=== PATIENT | female | born 1945 | race Caucasian/White ===

== ENCOUNTER 2022-10-18 07:50 | Inpatient (IN) ==
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
[2022-10-18 08:37] LABS: Basophils # (auto) 0.02 K/uL (0-0.2); Basophils % (auto) 0.3 %; Eosinophils # (auto) 0.05 K/uL (0-0.50); Eosinophils % (auto) 0.7 %; Hematocrit (blood only) 39.9 % (37.0-47.0); Hemoglobin 13.4 g/dl (12.0-16.0); Immature Granulocytes # (auto) 0.03 K/uL (0.01-0.20); Immature Granulocytes % (auto) 0.4 %; Lymphocytes # (auto) 1.16 K/uL (1.2-3.4); Lymphocytes % (auto) 15.8 %; Mean Corpuscular Hemoglobin 31.1 pg (25.0-34.0); Mean Corpuscular Hgb Conc 33.6 g/dL (32.0-36.0); Mean Corpuscular Volume 92.6 fL (80.0-100.0); Mean Platelet Volume 9.7 fL (9.4-12.4); Monocytes # (auto) 0.76 K/uL (0.11-0.59); Monocytes % (auto) 10.3 %; Neutrophils # (auto) 5.33 K/uL (1.40-6.50); Neutrophils % (auto) 72.5 %; Platelet Count 175 K/uL (130-400); RDW Coefficient of Variation 16.3 % (11.5-14.5); RDW Standard Deviation 55.8 fL (36.4-46.3); Red Blood Count 4.31 M/uL (4.20-5.40); White Blood Count 7.35 K/ul (4.8-10.8)
[2022-10-18] MEDS ORDERED: OPTIRAY 320 100ml IV ONE (08:42)
[2022-10-18 08:53] LABS: Albumin Globulin Ratio 1.4 (0.9-2); BUN Creatinine Ratio 23.8 (10-20); Bilirubin,Total 0.4 mg/dl (0.2-1.0); Calcium 9.1 mg/dl (8.6-10.3); Est GFR (African American) 101.7 ml/min; Est GFR (Non-African American) 87.7 ml/min; Globulin 2.9 gm/dl (2.5-4.0); Potassium 4.3 mmol/L (3.5-5.1); Total Protein 6.9 gm/dl (6.0-8.3)
[2022-10-18 09:00] LABS: Troponin I High Sensitivity 5.4 pg/ml (0-14)
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
[2022-10-18 09:17] LABS: iSTAT Creatinine 0.6 mg/dl (0.6-1.3); iSTAT Hemoglobin 14.6 g/dl (12.0-16.0); iSTAT Ionized Calcium 1.15 mmol/l (1.12-1.32); iSTAT Potassium 4.3 mmol/L (3.3-5.0)
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
[2022-10-18 09:30] LABS: Appearance Urine Clear (Clear); Bilirubin Urine Negative (Negative); Blood Urine Negative (Negative); Color Urine Yellow; Glucose Urine UA Negative (Negative); Ketones Urine Negative (Negative); Leukocyte Esterase Urine Negative (Negative); Nitrite Urine Negative (Negative); Protein Urine Negative (Negative); Specific Gravity Urine 1.009 (1.000-1.030); Urobilinogen Urine Negative (Negative); pH Urine 7.5 (4.5-7.5)
[2022-10-18] MEDS ORDERED: MoRPHine SULFATE 4 MG/ML 1 ML CARP\\VIAL IV STA (09:42)
[2022-10-18] MEDS ORDERED: ONDANSETRON INJ 2 MG/ML 2 ML VIAL IV STA (09:42)
[2022-10-18] MEDS ORDERED: ACETAMINOPHEN 325 MG TAB PO PRN (10:52)
[2022-10-18] MEDS ORDERED: POLYETHYLENE (MIRALAX) 17 GM PACK PO PRN (10:52)
[2022-10-18] MEDS ORDERED: ALUMINUM/MAGNESIUM SUSP 30 ML UDC PO PRN (10:52)
[2022-10-18] MEDS ORDERED: MAGNESIUM HYDROXIDE SUSP 30 ML UDC PO PRN (10:52)
[2022-10-18] MEDS ORDERED: ONDANSETRON INJ 2 MG/ML 2 ML VIAL IV PRN (10:52)
[2022-10-18] MEDS ORDERED: MoRPHine SULFATE 4 MG/ML 1 ML CARP\\VIAL IV PRN (10:58)
[2022-10-18] MEDS ORDERED: ENOXAPARIN INJ 40 MG/0.4 ML SYR SQ ONE (11:00)
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
[2022-10-18] MEDS ORDERED: FLUTICASONE PROPIONATE NA SPR 16 GM BTL PRN (12:00)
[2022-10-18] MEDS: ATENOLOL 50 MG TABLET PO SCH ×3 (13:40→20:07)
[2022-10-18] MEDS: oxyCODONE/ACETAMINOPHEN 10-325 TAB PO PRN ×2 (14:03→20:07)
--- NOTE | 2022-10-18 17:56 | Electrocardiogram Report ---
Test Reason : Blood Pressure : / mmHG Vent. Rate : 069 BPM Atrial Rate : 069 BPM P-R Int : 152 ms QRS Dur : 076 ms QT Int : 418 ms P-R-T Axes : 056 028 033 degrees QTc Int : 447 ms Normal sinus rhythm Normal ECG No previous ECGs available Confirmed by Sharan Magdaleno ([id number]) on 10/18/2022 5:56:02 PM Referred By: Confirmed By:Niels Magdaleno
[2022-10-18] MEDS: ENOXAPARIN INJ 40 MG/0.4 ML SYR SQ SCH (22:23)
[2022-10-19] MEDS: oxyCODONE/ACETAMINOPHEN 10-325 TAB PO PRN ×3 (06:34→16:16)
[2022-10-19 07:37] LABS: Hemoglobin 13.7 g/dl (12.0-16.0)
[2022-10-19] MEDS: ATENOLOL 50 MG TABLET PO SCH (08:56)
[2022-10-19] MEDS ORDERED: MAGNESIUM OXIDE 400 MG TAB PO SCH (09:00)
[2022-10-19] MEDS ORDERED: NIACIN EXTENDED REL 500 MG TABCR PO SCH (09:00)
[2022-10-19] MEDS ORDERED: FERROUS SULFATE 325 MG TAB PO SCH (09:00)
[2022-10-19] MEDS ORDERED: ATORVASTATIN 10 MG TAB PO SCH (09:00)
[2022-10-19] MEDS: ENOXAPARIN INJ 40 MG/0.4 ML SYR SQ SCH (10:53)
--- NOTE | 2022-10-19 13:56 | Hospitalist Progress Note ---
Date of Service October 19, 2022 Assessment & Plan (1) Multiple fractures of rib involving four or more ribs: Plan: Nondisplaced manubrial fracture and nondisplaced right anterior third through ninth rib fractures. Refused transfer to trauma center for evaluation Pain control as needed Continue Incentive spirometer Fall precautions Evaluated by PT OT Hypoxia secondary to above Had 2 step: Needs 2 L supplemental oxygen on exertion (2) Primary hypertension: Plan: BP better Continue Atenolol 50 mg BID (3) Morbid obesity with BMI of 50.0-59.9, adult: Plan: BMI 51.1 provide counseling on dietary modification. Lifestyle changes (4) Allergic rhinitis: Plan: continue Flonase prn Refused her loratadine/other antihistamines--no help previously (5) Dyslipidemia: Plan: continue statin and Niacin (6) Chronic acquired lymphedema: Plan: typically improves while laying flat at night, worse today d/t sitting up a significant length of time consider compression therapy, consider diuretic Plan DVT Px: Lovenox Code Status Full Code Admission and Anticipated Discharge Date Admission Date: October 18, 2022 Subjective Patient is seen and examined at bedside States having right rib pain especially with lying down, deep breathing Also reports sinus congestion and mild headache Eager to get discharged Denies any dyspnea, dizziness, nausea, vomiting, abdominal pain next Review of Systems Review of Systems: All systems reviewed & are unremarkable except as noted in Subjective Physical Exam Physical Exam: Physical Exam: Vitals signs as noted above General Appearance:Morbidly obese, no apparent distress Head: normocephalic, Atraumatic Eyes: normal inspection, EOMI Neck: supple, Trachea midline Respiratory/Chest: Decreased breath sounds, CTA, No accessory muscle use, +R rib tender Cardiovascular: S1, S2, No murmur Abdomen/GI:Soft, Non tender, Bowel sounds present Extremities/Musculoskeletal:normal inspection, B/L Lymphedema, Ecchymosis Neurologic/Psych:AAOX3, grossly no focal neurological deficits Skin: normal color, warm Results & Data Results & Data Vital Signs (Past 12 Hours) Vital Signs Temp Pulse Pulse Pulse Pulse Pulse Resp 10/19/22 11:20 36.7 C 63 20 10/19/22 11:07 74 79 65 10/19/22 07:50 37.3 C 65 20 10/19/22 07:17 07/12/23 06:02 66 10/19/22 04:00 37.0 C 69 18 Resp Resp Resp BP Pulse Ox Pulse Ox Pulse Ox 10/19/22 11:20 113/75 96 10/19/22 11:07 18 20 18 92 85 L 10/19/22 07:50 112/74 94 10/19/22 07:17 10/19/22 06:02 10/19/22 04:00 127/81 97 Pulse Ox O2 Del Method O2 Flow Rate O2 Flow Rate 10/19/22 11:20 Nasal Cannula 2 10/19/22 11:07 93 2 10/19/22 07:50 Nasal Cannula 2 10/19/22 07:17 Room Air 10/19/22 06:02 10/19/22 04:00 Nasal Cannula 2 Laboratory Results Short CBC 10/19/22 Range/Units 06:26 Hgb 13.7 (12.0-16.0) g/dl Hct 42.0 (37.0-47.0) %
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
== END 2022-10-19 16:39 | disposition home or self-care (01) | DRG 184 ==
LOC: ED 07:50 → 2W 10:52 → SUATTDRO 10:52 → 2W 13:07